=== PATIENT | female | born 1965 | race Caucasian/White ===

== ENCOUNTER 2017-08-02 13:35 | Emergency (ER) | payer OTHER ==
--- NOTE | 2017-08-02 17:10 | ER Document Report ---
ED General - General Chief Complaint: Medication Refill Stated Complaint: MEDICATION REFILL Time Seen by Provider: 08/02/17 16:23 Mode of Arrival: Ambulatory Information source: Patient - HPI Notes: Patient is a pleasant 53-year-old female history of lupus arthritis previous thyroidectomy, Graves' disease presents to the emergency department with report of bilateral knee pain that is worse and she was trying to exercise recently. The patient states she has been somewhat depressed for the last 4 years and has not exercised until recently. She has been depressed about her passing away. She denies any suicidal ideation. She reports no chest pain or difficulty breathing or abdominal pain and or constipation or diarrhea or dysuria. The patient states that she felt her knee pain was somewhat worse and was concerned that she had run out of her Synthroid. She is in between practitioners. She only requests ibuprofen for pain. There is no history of kidney trouble. Past Medical History - General Information source: Patient - Social History Smoking Status: Unknown if Ever Smoked Chew tobacco use (# tins/day): No Frequency of alcohol use: None Drug Abuse: None Lives with: Alone Family History: Reviewed & Not Pertinent Patient has suicidal ideation: No Patient has homicidal ideation: No - Past Medical History Cardiac Medical History: Reports: Hx Hypertension Renal/ Medical History: Denies: Hx Peritoneal Dialysis Past Surgical History: Reports: Hx Section, Hx Gynecologic Surgery - tubal reversal 2 etopic, Hx Thyroid Surgery, Hx Tubal Ligation Review of Systems - Review of Systems Notes: REVIEW OF SYSTEMS: CONSTITUTIONAL : Denies fever, chills, or sweats. Denies recent illness. EENT: Denies eye, ear, throat, or mouth pain or symptoms. Denies nasal or sinus congestion or discharge. Denies throat, tongue, or mouth swelling or difficulty swallowing. CARDIOVASCULAR: Denies chest pain. Denies palpitations or racing or irregular heart beat. Denies ankle edema. RESPIRATORY: Denies cough, cold, or chest congestion. Denies shortness of breath, difficulty breathing, or wheezing. GASTROINTESTINAL: Denies abdominal pain or distention. Denies nausea, vomiting , or diarrhea. Denies blood in vomitus, stools, or per rectum. Denies black, tarry stools. Denies constipation. GENITOURINARY: Denies difficulty urinating, painful urination, burning, frequency, blood in urine, or discharge. FEMALE GENITOURINARY: Denies vaginal bleeding, heavy or abnormal periods, irregular periods. Denies vaginal discharge or odor. MUSCULOSKELETAL: Denies back or neck pain or stiffness. SKIN: Denies rash, lesions or sores. Patient reports a chronic photosensitivity to the sun related to lupus. HEMATOLOGIC : Denies easy bruising or bleeding. LYMPHATIC: Denies swollen, enlarged glands. NEUROLOGICAL: Denies confusion or altered mental status. Denies passing out or loss of consciousness. Denies dizziness or lightheadedness. Denies headache. Denies weakness or paralysis or loss of use of either side. Denies problems with gait or speech. Denies sensory loss, numbness, or tingling. Denies seizures. PSYCHIATRIC: Denies anxiety or stress. Denies depression, suicidal ideation, or homicidal ideation. ALL OTHER SYSTEMS REVIEWED AND NEGATIVE. Dictation was performed using [employer] voice recognition software Physical Exam - Vital signs Vitals: Temp Pulse Resp BP Pulse Ox 99.0 F 77 17 156/75 H 98 08/02/17 13:56 08/02/17 13:56 08/02/17 13:56 08/02/17 13:56 08/02/17 13:56 - Notes Notes: PHYSICAL EXAMINATION: GENERAL: Well-appearing, well-nourished and in no acute distress. HEAD: Atraumatic, normocephalic. EYES: Pupils equal round and reactive to light, extraocular movements intact, conjunctiva are normal. ENT: Nares patent, oropharynx clear without exudates. Moist mucous membranes. NECK: Normal range of motion, supple without lymphadenopathy LUNGS: Breath sounds clear to auscultation bilaterally and equal. No wheezes rales or rhonchi. HEART: Regular rate and rhythm without murmurs ABDOMEN: Soft, nontender, nondistended abdomen. No guarding, no rebound. No masses appreciated. Female : deferred Musculoskeletal: Normal range of motion, no pitting or edema. No cyanosis. Patient has mild pain to both knees diffusely. No erythema. There may be a slight posterior fluid bulge consistent with a Ocasio's cyst, but there is no erythema. No palpable cord. Negative Homans. No distal edema. Pain in the knees are somewhat worse with motion. Distally, the patient is neurovascularly intact. NEUROLOGICAL: Cranial nerves grossly intact. Normal speech, normal gait. Normal sensory, motor exams PSYCH: Normal mood, normal affect. SKIN: Warm, Dry, normal turgor, no rashes or lesions noted. Course - Re-evaluation Re-evalutation: 08/02/17 18:54 X-ray showed no evidence for fracture or other significant abnormality. Patient was reassured and given local follow-up options. There is no indication for significant effusion or suggestion for DVT or significant arthritic breakdown. No neurovascular compromise. - Vital Signs Vital signs: Temp Pulse Resp BP Pulse Ox 99.0 F 77 17 156/75 H 98 08/02/17 13:56 08/02/17 13:56 08/02/17 13:56 08/02/17 13:56 08/02/17 13:56 Discharge - Discharge Clinical Impression: Lupus Qualifiers: Lupus erythematosus form: unspecified Qualified Code(s): L93.0 - Discoid lupus erythematosus Knee pain, bilateral Qualifiers: Chronicity: acute Qualified Code(s): M25.561 - Pain in right knee; M25.562 - Pain in left knee; M25.562 - Pain in left knee Condition: Stable Disposition: HOME, SELF-CARE Instructions: Family Physicians / Practices, Knee Exercise Program ([facility]) Additional Instructions: Return to the emergency department in case of severe pain, fever, difficulty breathing. Prescriptions: Ibuprofen [Motrin 800 mg Tablet] 800 mg PO Q8H PRN #30 tab PRN Reason: Levothyroxine Sodium [Synthroid] 137 mcg PO DAILY #30 tablet Metoprolol Tartrate [Lopressor] 50 mg PO BID #60 tablet Referrals: KARTHIK VILA DO [NO LOCAL MD] - Follow up as needed
--- NOTE | 2017-08-02 18:04 | RADIOLOGY REPORT (SQ) ---
EXAM DESCRIPTION: KNEE BILATERAL 1-2 VIEWS COMPLETED DATE/TIME: 08/02/2017 5:36 pm REASON FOR STUDY: bilat knee pain, atraumatic, hx Lupus COMPARISON: None. NUMBER OF VIEWS: Four views TECHNIQUE: AP and lateral standing bilateral knees. LIMITATIONS: None. FINDINGS: MINERALIZATION: Normal. RIGHT KNEE BONES: No acute fracture. No worrisome bone lesions. MEDIAL COMPARTMENT: No significant osteophytes. There is minimal decrease in the medial compartment . No chondrocalcinosis. LATERAL COMPARTMENT: No significant osteophytes. No joint space narrowing. No chondrocalcinosis. LEFT KNEE BONES: No acute fracture. No worrisome bone lesions. MEDIAL COMPARTMENT: No significant osteophytes. There is minimal decrease in the medial compartment . No chondrocalcinosis. LATERAL COMPARTMENT: No significant osteophytes. No joint space narrowing. No chondrocalcinosis. IMPRESSION: No acute fracture dislocation. There is minimal decrease in the medial compartment bila terally. Other findings as noted above TECHNICAL DOCUMENTATION: JOB ID: [id number] [employer]- All Rights Reserved Reading location - IP/workstation name: [email or web address]
[2017-08-02 19:10] VITALS: BP 128/82
== END 2017-08-02 19:10 | disposition home or self-care (01) ==
LOC: ER 13:35
DX: L93.0 Discoid lupus erythematosus (principal); M25.561 Pain in right knee; M25.562 Pain in left knee; E89.0 Postprocedural hypothyroidism; F32.9 Major depressive disorder, single episode, unspecified; I10 Essential (primary) hypertension
CPT/HCPCS: 99282